=== PATIENT | female | born 1955 | race Two or more races ===

== ENCOUNTER 2024-10-29 12:45 | Day surgery (SDC) | payer OTHER, SELFPAY ==
[2024-10-28 14:34] VITALS: BMI 32.3
[2024-10-29] VITALS (9 sets, daily range): BP systolic 125–170; BP diastolic 76–121; PULSE 71–102; RESP 13–20; TEMP 36.5–36.7; O2SAT 92–100; BMI 32.7
[2024-10-29] MEDS: BENZOCAINE 20% (Hurricaine) SPRAY 1 DOSE TOP (14:31)
[2024-10-29] MEDS: SODIUM CHLORIDE 0.9% 500 ML 500 ML 20 ML IV (14:31)
[2024-10-29] MEDS: DiphenhydrAMINE INJ 50 MG/ML VIAL 25 MG IV (14:32)
[2024-10-29] MEDS: fentaNYL CIT INJ 50 mCg/ML AMP 2ML (ASD USE ONLY) IV (14:33)
[2024-10-29] MEDS: MIDAZOLAM INJ 1 MG/ML VIAL 2 ML (ASD USE ONLY) 2 MG IV (14:36)
== END 2024-10-29 15:45 | disposition home or self-care (01) ==
PROVIDERS: PCP Family Medicine; Referring Provider Specialist; Visit Provider Specialist
PROC: (CPT 43239; principal; 2024-10-29 12:30)
DX: K22.2 Esophageal obstruction (principal); K22.10 Ulcer of esophagus without bleeding; K29.50 Unspecified chronic gastritis without bleeding; I10 Essential (primary) hypertension; Z87.19 Personal history of other diseases of the digestive system; Z79.899 Other long term (current) drug therapy
CPT/HCPCS: 43248; 43239; A4649; C1769; J1200; J2250; J3010; J7040; A9270